=== PATIENT | female | born 1965 | race Caucasian/White ===

== ENCOUNTER → 2016-07-18 | Outpatient (CLI) | payer OTHER ==
--- NOTE | 2016-07-18 13:05 | MA ---
Screening Digital Mammogram With iCAD Analysis Clinical Indications: Routine screening. Technique: Standard cephalocaudal projections are obtained. Digital breast tomosynthesis was performe d in the MLO projection with reconstruction at 1.0 mm slice thickness and composite MLO views reconst ructed. This examination is processed by the iCAD computer aided detection system. Comparison: August 2014, August 2013, July 2012, July 2011, July 2010, May 2009, 2007. Breast density: Type B; Scattered fibroglandular densities. Findings: CAD was reviewed. No masses, suspicious calcifications or secondary signs of malignancy are seen. There has been no significant change in the appearance of either breast. Impression: Negative mammogram. BI-RADS 1. Recommendation: Routine mammographic screening in one year as long as [facility]. Negative mammography should not preclude additional workup of a clinically suspicious finding. The patient's information is entered into a reminder system with a target due date for her next mammo gram.
== END ==
LOC: FIMAGING 09:49
PROVIDERS: ATTEND Obstetrics & Gynecology
DX: Z12.31 Encounter for screening mammogram for malignant neoplasm of breast (principal)
CPT/HCPCS: G0202

== ENCOUNTER → 2017-04-24 | Outpatient (CLI) | payer OTHER | LOC: FIMAGING 09:33 | PROVIDERS: ATTEND Obstetrics & Gynecology | DX: Z13.820 Encounter for screening for osteoporosis (principal); M85.80 Other specified disorders of bone density and structure, unspecified site ==

== ENCOUNTER → 2017-07-30 | Outpatient (CLI) | payer OTHER | LOC: FIMAGING 09:20 | PROVIDERS: ATTEND Obstetrics & Gynecology | DX: Z12.31 Encounter for screening mammogram for malignant neoplasm of breast (principal) ==

== ENCOUNTER 2017-09-03 05:40 | Day surgery (SDC) | payer OTHER ==
--- NOTE | 2017-08-28 17:51 | GHP ---
[f rep st] PREOP HISTORY AND PHYSICAL DATE OF ADMISSION: 09/03/2017 DATE OF SURGERY: 09/03/2017 at 7:15 am. PREOPERATIVE DIAGNOSIS: Postmenopausal bleeding and submucosal fibroid. PROCEDURE PERFORMED: Hysteroscopy, dilation and curettage and myomectomy with morcellator. HISTORY OF PRESENT ILLNESS: Herlinda is a 52-year-old 6, para 2-0-4-2, who was started on hormo ne replacement therapy in 2016 because of severely symptomatic menopausal symptoms. She was hav ing sleeplessness, fatigue, hot flashes, night sweats, mood disturbances, greatly affecting her quali ty of life. She was started on Minivelle 0.05 mg patches twice a week and Prometrium 200 mg. Initial ly, she did well. Her symptoms resolved and she felt much better. Approximately 4 months after she started hormone replacement therapy, she had some episodes of spotting, very small amount of red spot ting, and this recurred over several months. She had an ultrasound to evaluate her post menopausal b leeding and the ultrasound revealed a small submucosal fibroid 6 x 6 x 7 mm but clearly submucosal in vading the wall of the uterus. Ovaries were normal. No other abnormalities were seen. We discussed options of continuing to watch and monitor and perform an endometrial biopsy versus hysteroscopy, D and C and myomectomy. Because this does not appear to be a polyp or a lining issue, it appears to be a true submucosal fibroid, the decision was made to proceed with surgery to remove the fibroid and ge t a tissue diagnosis to rule out pathology. The patient does want to continue her hormone replacemen t therapy. PAST MEDICAL HISTORY: Significant for congenital pelvic ureteric junction obstruction. She has had multiple surgeries involving her ureter and kidney complications with chronic reflux and hospitalized for this. She also has anxiety. No other significant medical problems. PAST SURGICAL HISTORY: She also had shoulder surgery in 2003 after a dislocation and she has had a D and C for miscarriage. PAST OBSTETRIC HISTORY: She is 5. In 1994 and 1995, she had miscarriages with a d and C in 1 996. In 1996, she had a vaginal delivery without complication. In 2003 and 2004, she also had miscar riages and then in 2005, she had a vaginal delivery without complication, and her children are well. PAST GYNECOLOGICAL HISTORY: She had a normal menstrual triad with menarche at age 12, normal cycles until she went through menopause approximately 2 years ago, and she was very symptomatic from her men yumiko as previously discussed. She does have a history of an abnormal Pap, was treated with cryo se veral years ago. Recent Paps have been normal including a most recent Pap in January was normal. Neg ative high-risk HPV. She does have a distant history of genital warts at 19 years old. No other no other STDs. SOCIAL HISTORY: She is . She lives with her and her children. She is self-employed, works at [employer]. She denies tobacco, alcohol 5-7 glasses a week, no marijuana or any other drugs. She does regularly exercise, yoga and hikes daily, and generally healthy. She has no known drug all ergies. She does get severe nausea from anesthesia. MEDICATIONS: Baby aspirin, biotin, fish oil, calcium and vitamin D, and then Minivelle 0.05 mg patch es 2 times a week and Prometrium 200 mg daily. FAMILY HISTORY: Her mother has rheumatoid arthritis. Her father passed from pancreatic cancer. She has a brother who passed from liver failure at age 52. No other significant family history. OBJECTIVE: VITAL SIGNS: Her blood pressure is 120/72, weight is 136. GENERAL: She is a well-develo ped, well-nourished female, in no acute distress. LUNGS: Clear to auscultation bilaterally. HEART: Regular rate and rhythm, no murmur. ABDOMEN: Soft, nontender, nondistended. Normal bowel sounds. PELVIC EXAM: Normal external genitalia. Normal parous cervix. Uterus is anteverted, anteflexed, mobi le, nontender. No masses. ASSESSMENT AND PLAN: 52-year-old 6, para 2-0-4-2 with an episode of postmenopausal bleeding and a submucosal fibroid, on hormone replacement therapy. The patient will undergo a hysteroscopy, D and C, and myomectomy. She understood the risks and benefits to the procedure. The risks including bleeding, infection, damage to the uterus including possible risk of perforation, damage to other or hubert if perforation was to occur, need for additional procedures and electrolyte imbalances. She unde rstood these risks and benefits and agreed to proceed. /[id number]/MODL
[2017-09-03] MEDS ORDERED: LR 1,000 ML IV ONE (06:10)
[2017-09-03] MEDS ORDERED: LIDOCAINE 1% 2 ML INJ ID PRN (06:10)
[2017-09-03 06:25] VITALS: PULSE 63
[2017-09-03] MEDS ORDERED: SILVER NITRATE APPLICATOR 1 APPL TP ONE (06:57)
--- NOTE | 2017-09-03 07:03 | PDANEPAE ---
ANE History of Present Illness post menopausal bleeding, fibroid ANE Past Medical History - Cardiovascular History Hx Hypertension: No Hx Arrhythmias: No Hx Chest Pain: No Hx Coronary Artery / Peripheral Vascular Disease: No Hx CHF / Valvular Disease: No Hx Palpitations: No - Pulmonary History Hx COPD: No Hx Asthma/Reactive Airway Disease: No Hx Recent Upper Respiratory Infection: No Hx Oxygen in Use at Home: No Hx Sleep Apnea: No Sleep Apnea Screening Result - Last Documented: Negative - Neurologic History Hx Cerebrovascular Accident: No Hx Seizures: No Hx Dementia: No - Endocrine History Hx Diabetes: No Hypothyroid: No Hyperthyroid: No Obesity: no - Renal History Hx Renal Disorders: No Renal History Comment: hx of left pyeloplasty in 2012 with Melouk - Liver History Hx Hepatic Disorders: No - Neurological & Psychiatric Hx Hx Neurological and Psychiatric Disorders: No - Cancer History Hx Cancer: No - Congenital Disorder History Hx Congenital Disorders: No - GI History GERD: no Hx Gastrointestinal Disorders: No Gastrointestinal History Comment: Hx of abdominal pain, with negative EGD - Other Health History Other Health History: wears reading glasses - Chronic Pain History Chronic Pain: No - Surgical History Prior Surgeries: 07/31/12 Left Davinci Pyeloplasty with Melouk. left shoulder scope. EGD's and Colonoscopies ANE Review of Systems Review of Systems: - Exercise capacity METS (RN): 4 METS ANE Patient History - Allergies Allergies/Adverse Reactions: codeine [Codeine] Allergy (Verified 08/26/17 10:29) HEADACHES hydromorphone HCl [From Dilaudid] Allergy (Verified 08/26/17 10:29) SEVERE N/V-HEADACHES narcotics Allergy (Uncoded 08/26/17 10:29) "feels like these make her nauseous" - Home Medications Home Medications: Aspirin 81mg (*) 08/26/17 [Last Taken 08/25/17] Herbals/Supplements -Info Only 08/26/17 [Last Taken 08/25/17] Hormone Replacement Therapy 08/26/17 [Last Taken 1 Day Ago ~09/02/17] - NPO status NPO Since - Liquids (Date): 09/02/17 NPO Since - Liquids (Time): 22:30 NPO Since - Solids (Date): 09/02/17 NPO Since - Solids (Time): 22:00 - Anes Hx Anes Hx: post operative nausea and vomiting - Smoking Hx Smoking Status: Former smoker - Alcohol Use Alcohol Use: Other (1 drink per day) - Family Anes Hx Family Hx Anesthesia Complications: none ANE Labs/Vital Signs - Vital Signs Blood Pressure: 115/64 Heart Rate: 63 Respiratory Rate: 18 O2 Sat (%): 100 Height: 172.72 cm Weight: 61.689 kg ANE Physical Exam - Airway Mallampati Score: Class 2 (short TMD) - Pulmonary Pulmonary: no respiratory distress - Cardiovascular Cardiovascular: regular rate and rhythym - ASA Status ASA Status: I ANE Anesthesia Plan Anesthesia Plan: GA w LMA
[2017-09-03] MEDS ORDERED: SCOPOLAMINE HYDROBROMIDE 1 MG/3 DAYS PATCH TD ONE (07:06)
[2017-09-03] MEDS ORDERED: MIDAZOLAM 2 MG/2 ML VIAL IVP ONE (07:06)
[2017-09-03] MEDS ORDERED: fentaNYL 100 MCG/2 ML INJ ONE ×2 (07:14→09:03)
[2017-09-03] MEDS ORDERED: PROPOFOL 200 MG/20 ML VIAL ONE ×2 (07:14)
[2017-09-03] MEDS ORDERED: DEXAMETHASONE 4 MG/ML VIAL ONE ×2 (07:16)
--- NOTE | 2017-09-03 07:27 | PDHPUP ---
History & Physical Update H&P update statement: This history and physical update is based on an assessment of the patient which was completed after admission or registration (within 24 hours), but prior to the surgery/procedure.
[2017-09-03] MEDS ORDERED: ONDANSETRON 4 MG/2 ML VIAL ONE ×2 (08:06→10:28)
[2017-09-03] MEDS ORDERED: KETOROLAC 30 MG/1 ML SDV ONE (08:28)
[2017-09-03] MEDS ORDERED: IBUPROFEN 600 MG TAB PO PRN (08:36)
[2017-09-03] MEDS ORDERED: HYDROCODONE/APAP 5/325 TAB PO PRN (08:37)
--- NOTE | 2017-09-03 08:42 | POSTOPPROG ---
Post Op Note Date of Operation: 09/03/17 Surgeon: Natalia Rodríguez Anesthesiologist: Dr Mike silva Anesthesia: LMA Pre-op Diagnosis: post menopausal bleeding, submucosal fibroid Post-op Diagnosis: same Procedure: hysteroscopy D and C, myomectomy Findings: endometrium with redundant tissue Inf/Abcess present in the surg proc area at time of surgery?: No Depth: Organ Space EBL: Minimal Total fluids administered: 900 Specimen(s): endometrial currettings
[2017-09-03] MEDS ORDERED: fentaNYL 100 MCG/2 ML INJ IVP PRN (08:46)
[2017-09-03] MEDS ORDERED: NALOXONE HCL 0.4 MG/ML INJ IVP PRN (08:46)
--- NOTE | 2017-09-03 09:27 | GOP ---
[f rep st] OPERATIVE REPORT DATE OF OPERATION: 09/03/2017 SURGEON: Natalia Rodríguez MD PREOPERATIVE DIAGNOSIS: Postmenopausal bleeding, submucosal fibroid. POSTOPERATIVE DIAGNOSIS: Postmenopausal bleeding, submucosal fibroid. PROCEDURE PERFORMED: Hysteroscopy, dilation, curettage, myomectomy with morcellator. FINDINGS: SPECIMENS: Pathologic specimen will be endometrial curettings. ESTIMATED BLOOD LOSS: Less than 10 cc. INDICATIONS: Herlinda is a 52-year-old 6, para 2-0-4-2, who was started on hormone replacement therapy in 01/2017 because of severe symptomatic menopausal symptoms. She did well for 3 to 4 months and has begun having postmenopausal spotting. We adjusted her dose of HRT and she continued to have spotting over several months. She had an ultrasound to evaluate her postmenopausal bleeding. Ultra sound revealed a small submucosal fibroid which was 6 x 6 x 7 mm invading the wall of the uterus. Ov harvey were normal. There were no other abnormalities in the cavity and her lining was thin. I gave the patient the option of expectant management versus surgical management for diagnosis and treatment . The patient opted to have surgical management with a hysteroscopy, D and C and myomectomy with mor cellator. She was consented for the procedure. She understood the risks and benefits, the risks inc luding bleeding, infection, damage to the uterus including possible risk of perforation, damage to ot her organs if perforation was to occur, need for additional procedures and electrolyte imbalances. S he understood these risks and benefits, and agreed to proceed. DESCRIPTION OF PROCEDURE: Patient was taken to the operating room where she was placed under general anesthesia without difficulty. She was prepped and draped in the dorsal lithotomy position and her bladder had previously been drained prior to entering the operating room. After a WHO time-out was p erformed, an open-sided speculum was placed in the vagina, and single-tooth tenaculum was used to gra sp the anterior lip of the cervix. The uterus sounded to 6 cm. The cervix was then progressively di lated with [place] dilators to a #6.5. The True-Clear hysteroscope was then gently advanced from the c ervix to the fundus, and inspection of the cavity was made. Both tubal ostia were visualized without difficulty. There was a small indentation in the posterior wall of the uterus near the right tubal ostia which was assumed to be the submucosal fibroid. The morcellator was advanced into the operativ e channel of the hysteroscope, window lock was performed and morcellation was performed under direct visualization until the cavity was open and even, and a sampling of the entire endometrial cavity was performed with the morcellator without difficulty. The hysteroscope was then removed. Sharp curett age was then performed in a clockwise fashion until a gritty texture was palpated throughout the enti re uterus and the specimen will be sent together. The single-tooth tenaculum was removed. A small a daphne of bleeding was cauterized with silver nitrate. The speculum was removed. The patient tolerated the procedure well. Sponge, lap, needle, and instrument counts were correct x3. Patient went to [facility] recovery room in good condition. IV FLUIDS: 900 cc of fluid, deficit from the hysteroscope was 350 cc. /[id number]/MODL
--- NOTE | 2017-09-03 10:00 | POSTANESTH ---
Post Anesthetic Evaluation Cardiovascular Status: Normal, Stable Respiratory Status: Normal, Stable Level of Consciousness/Mental Status: Can Participate in Eval Pain Control: Adequate, Prn Tx Ordered Nausea/Vomiting Control: Adequate, Prn Tx Ordered Complications Possibly Related to Anesthesia: None Noted
[2017-09-03 10:08] VITALS: RESP 10
[2017-09-03] MEDS ORDERED: ONDANSETRON 4 MG/2 ML VIAL IVP ONE (10:45)
[2017-09-03 11:32] VITALS: BP 124/64; TEMP 97.7; O2SAT 96
== END 2017-09-03 11:37 | disposition home or self-care (01) ==
LOC: FSGY 05:40
PROVIDERS: ATTEND Obstetrics & Gynecology
PROC: 0UDB8ZX Extraction of Endometrium, Via Natural or Artificial Opening Endoscopic, Diagnostic (ICD-10-PCS; principal; 2017-09-03 07:15)
DX: N95.0 Postmenopausal bleeding (principal); D25.0 Submucous leiomyoma of uterus
CPT/HCPCS: 58558; C1782; J1100; J1885; J2250; J2405; J2704; J3010

== ENCOUNTER → 2018-08-08 | Outpatient (CLI) | payer OTHER | LOC: FIMAGING 08:46 | PROVIDERS: ATTEND Obstetrics & Gynecology | DX: Z12.31 Encounter for screening mammogram for malignant neoplasm of breast (principal) ==